=== PATIENT | female | born 1980 | race Caucasian/White ===

== ENCOUNTER 2024-01-22 21:42 | Emergency (ER) | payer OTHER ==
[2024-01-22 22:00] VITALS: BP 136/85; PULSE 80; RESP 16; TEMP 97.7; BMI 21.4
== END 2024-01-22 22:23 | disposition home or self-care (01) ==
LOC: FER 21:42
DX: T19.2XXA Foreign body in vulva and vagina, initial encounter (principal)
CPT/HCPCS: 99283-25; 99284-25